=== PATIENT | female | born 1970 | race American Indian/Alaskan Native ===

== ENCOUNTER 2017-02-18 14:13 | Outpatient (CLI) | payer BC ==
--- NOTE | 2017-02-18 14:49 | XRay Report ---
X-RAY LEFT FOOT THREE VIEWS: 02/18/17 CLINICAL: Left foot pain. FINDINGS: No fracture or dislocation. Mild hallux valgus deformity and mild arthritis at first MTP joint. No joint erosions. Mild soft tissue swelling at the first MTP joint. The rest of the joints are normal. No soft tissue air or foreign body. IMPRESSION: Mild arthritis at the first MTP joint and mild hallux valgus deformity.
== END 2017-02-18 14:14 | disposition home or self-care (01) ==
LOC: SPVIMAG 14:13
PROVIDERS: ATTEND Orthopaedic Surgery Sports Medicine
DX: M19.072 Primary osteoarthritis, left ankle and foot (principal); M20.12 Hallux valgus (acquired), left foot